=== PATIENT | female | born 1995 | race Caucasian/White ===

== ENCOUNTER 2016-11-02 21:29 | Emergency (ER) | payer OTHER | END 2016-11-02 22:55 | disposition home or self-care (01) | LOC: FER 21:29 | DX: J45.909 Unspecified asthma, uncomplicated (principal); Z77.22 Contact with and (suspected) exposure to environmental tobacco smoke (acute) (chronic) | CPT/HCPCS: 71020; 94640; 94664 ==

== ENCOUNTER 2020-09-02 02:58 | Emergency (ER) | payer OTHER ==
[2020-09-02] MEDS ORDERED: ATARAX25 MG PO (03:45)
[2020-09-12] MEDS ORDERED: ATARAX25 MG PO (08:21)
[2020-09-12] MEDS ORDERED: PEPCID AC20 MG PO (08:21)
[2020-09-12] MEDS ORDERED: STEROID PO (08:23)
[2020-09-12] MEDS ORDERED: IBUPROFEN800 MG PO (09:07)
== END 2020-09-02 03:50 | disposition home or self-care (01) ==
LOC: FER 02:58
DX: L50.0 Allergic urticaria (principal)
CPT/HCPCS: 99283; J2930

== ENCOUNTER → 2020-09-12 | Day surgery (SDC) | payer OTHER ==
[~2020-09-12] MED LIST: ATARAX25 MG PO; IBUPROFEN800 MG PO; PEPCID AC20 MG PO; STEROID PO
[2020-09-12 08:19] LABS: HCG (URINE) SCREEN NEGATIVE (NEGATIVE)
[2020-09-12 08:55] LABS: HGB 11.4 g/dl (12.5-16.0); MCH 29.5 pg (25.0-31.0); MCHC 33.5 g/dL (32.0-36.0); MCV 88.1 fL (78.0-100.0); MPV 9.8 fL (6.0-9.5); RBC 3.86 M/uL (4.20-5.40); RDW 12.7 % (11.5-14.0); WBC 13.4 K/uL (4.0-10.5)
== END | disposition home or self-care (01) ==
LOC: FAS 07:57
PROVIDERS: Obstetrics & Gynecology
DX: S31.41XA Laceration without foreign body of vagina and vulva, initial encounter (principal); X58.XXXA Exposure to other specified factors, initial encounter; J45.909 Unspecified asthma, uncomplicated; K21.9 Gastro-esophageal reflux disease without esophagitis; Z88.0 Allergy status to penicillin; Z80.0 Family history of malignant neoplasm of digestive organs; Z20.822 Contact with and (suspected) exposure to COVID-19; Z87.42 Personal history of other diseases of the female genital tract
CPT/HCPCS: 36415; 84703; 86850; 86900; 86901; J1170; J2250; J2704; J3010; J7120

== ENCOUNTER 2021-01-28 09:55 | Emergency (ER) | payer OTHER ==
[2021-01-28 12:12] LABS: BASOPHIL 0 % (0-2); EOSINOPHIL 1.9 % (0-5); HCT 37.3 % (37.0-47.0); HGB 12.5 g/dl (12.5-16.0); LYMPHOCYTE 34.4 % (15-48); MCH 29.3 pg (25.0-31.0); MCHC 33.5 g/dL (32.0-36.0); MCV 87.6 fL (78.0-100.0); MONOCYTE 9.3 % (0-12); MPV 10.5 fL (6.0-9.5); NEUTROPHIL 54.4 % (41-80); NRBC 0; PLT 165 K/uL (150-400); RBC 4.26 M/uL (4.20-5.40); RDW 12.2 % (11.5-14.0); WBC 4.2 K/uL (4.0-10.5)
[2021-01-28 12:35] LABS: BUN/CREAT RATIO (CALC) 16.2 RATIO; CREATININE 0.68 mg/dL (0.51-0.95); POTASSIUM 3.7 mmol/L (3.5-5.1)
== END 2021-01-28 13:11 | disposition home or self-care (01) ==
LOC: FER 09:55
PROVIDERS: Emergency Medicine
DX: U07.1 COVID-19 (principal); Z88.0 Allergy status to penicillin
CPT/HCPCS: 36415; 71045; 80048; 85025; 85379

== ENCOUNTER 2021-06-19 13:54 | Emergency (ER) | payer OTHER ==
[2021-06-19 15:12] LABS: BASOPHIL 0.2 % (0-2); EOSINOPHIL 0 % (0-5); HCT 37.2 % (37.0-47.0); HGB 12.5 g/dl (12.5-16.0); LYMPHOCYTE 5.9 % (15-48); MCH 28.8 pg (25.0-31.0); MCHC 33.6 g/dL (32.0-36.0); MCV 85.7 fL (78.0-100.0); MONOCYTE 5.2 % (0-12); MPV 10.4 fL (6.0-9.5); NEUTROPHIL 88.1 % (41-80); NRBC 0; PLT 165 K/uL (150-400); RBC 4.34 M/uL (4.20-5.40); RDW 12.2 % (11.5-14.0); WBC 12.3 K/uL (4.0-10.5)
[2021-06-19 15:22] LABS: BUN/CREAT RATIO (CALC) 12.2 RATIO; CREATININE 0.74 mg/dL (0.51-0.95); POTASSIUM 3.2 mmol/L (3.5-5.1)
[2021-06-19 15:55] LABS: CORONAVIRUS 2019 SARS-COV-2 NEGATIVE (NEGATIVE); INFLUENZA A NAA NEGATIVE (NEGATIVE)
[2021-06-19 16:10] LABS: BILIRUBIN 1+ mg/dL (NEGATIVE); BLOOD TRACE-INTACT Ery/uL (NEGATIVE); CLARITY CLOUDY (CLEAR); COLOR YELLOW (YELLOW); GLUCOSE (U) NORMAL (NORMAL); LEUKOCYTES NEGATIVE Leu/uL (NEGATIVE); NITRITE NEGATIVE (NEGATIVE); PROTEIN TRACE (LOW) mg/dL (NEGATIVE); SPECIFIC GRAVITY >=1.030 (1.001-1.030); UROBILINOGEN 0.2 mg/dL (0.2-1.0); pH 5.5 (5.0-9.0)
[2021-06-19 16:19] LABS: BACTERIA 2+; MUCOUS MODERATE
[2021-06-19] MEDS ORDERED: MACROBID100 MG PO (17:20)
[2021-06-19] MEDS ORDERED: ZOFRAN4 M1 PO (17:20)
== END 2021-06-19 18:11 | disposition home or self-care (01) ==
LOC: FER 13:54
PROVIDERS: Nurse Practitioner Family
DX: N39.0 Urinary tract infection, site not specified (principal); B34.9 Viral infection, unspecified; Z20.822 Contact with and (suspected) exposure to COVID-19; Z88.0 Allergy status to penicillin
CPT/HCPCS: 36415; 71045; 80048; 81001; 85025; 87088; J1885; J2405; J7030; U0002